=== PATIENT | female | born 1985 ===

== ENCOUNTER 2017-10-22 07:05 | Inpatient (IN) | payer MEDICAID, SELFPAY ==
[2017-10-22 07:30] VITALS: BMI 35.6
[2017-10-22] MEDS ORDERED: Oxytocin 30 units/LR 500ML 30 U/500 ML BAG IV SCH (07:45)
[2017-10-22] MEDS ORDERED: Lactated Ringer's 1,000 ML IV SCH (07:45)
[2017-10-22 07:57] LABS: BASO # 0.1 K/uL (0.0-0.2); BASO % 0.8 % (0.0-2.0); EOS # 0.1 K/uL (0.0-0.7); EOS % 0.5 % (0.0-4.0); HEMOGLOBIN 11.6 g/dL (12.0-16.0); LYMPH # 2.1 K/uL (1.0-4.3); MEAN CELL VOLUME 84.9 fl (81.0-99.0); MEAN CORPUSCULAR HEMOGLOBIN 28.5 pg (27.0-31.0); MEAN CORPUSCULAR HGB CONC 33.6 g/dL (33.0-37.0); MEAN PLATELET VOLUME 8.8 fl (7.2-11.7); MONO # 0.7 K/uL (0.0-0.8); MONO % 6.4 % (0.0-10.0); NEUT # 7.3 K/uL (1.8-7.0); NEUT % 71.3 % (50.0-75.0); NRBC % 0.1 % (0.0-0.0); RBC 4.06 Mil/uL (3.80-5.20); RED CELL DISTRIBUTION WIDTH 13.9 % (11.5-14.5); WHITE BLOOD COUNT 10.2 K/uL (4.8-10.8)
[2017-10-22] MEDS ORDERED: Multivitamin With Minerals Tab PO SCH (09:00)
--- NOTE | 2017-10-22 09:02 | OBADHP ---
Datetime: 10/22/2017 08:14 Admit Comment, IP Provider: 32 yo IUP 38.3 weeks present c/o ctx since 4 am that has been ge tting intensity and more frequents. Denies LOF, VB. States +FM. Medical records incomplete, only labs GC/Chla negative; and US. PNC: [facility], [place], operated by [facility]. 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 PSH: none. PE: see PE tab VE: /+1 TOCO: 140/variable/cat I/15 x15/ no decel. A/P: 32 yo IUP 38.3 weeks present c/o ctx, active labor. admit to unit Initiate labor protocol /maternal monitoring Will call [facility] today to obtain complete Med records. Case seen and examined with Dr Ahn. Cuello pgy1. OB Hpospitaliston-call...Pt seen and examined...patient brought chart. - only two sonogra ms and GC/Chl reports...pt does not know about GBS results. Anticiapte MAHNDO Pelvic Type - PN: Adequate Extremities - PN: Normal Abdomen - PN: Normal Back - PN: Not Done Breast - PN: Not Done Lungs - PN: Normal Heart - PN: Normal Thyroid - PN: Not Done Neurologic - PN: Normal HEENT - PN: Normal General - PN: Normal Presentation-Admit: Vertex FHR - Baseline A Provider: 140 Membranes, Provider: Bulging Contraction Comments Provider: e/ 1m Vital Signs Provider: Reviewed; Within Normal Limits IP Chief Complaint: Uterine contractions NICHD Variability Prov Fetus A: Moderate 6-25bpm NICHD Accel Fetus A IP Provider: 15X15 FHR Category Provider Fetus A: Category I NICHD Decel Fetus A IP Provider: None Dilatation, Provider: 9 Effacement, Provider: 100 Station, Provider: 1 Genitourinary Exam: Normal DTRs - PN: Not Done EGA AdmitDate IP: 38.3 IP Adm Impression: Term, intrauterine ; Active labor; Intact Membranes IP Admit Plan: Admit to unit; Initiate labor protocol
--- NOTE | 2017-10-22 09:02 | OBDS ---
DELIVERY PERSONNEL Nurse Box [employer] Maker Certified: emmanuel Delivery Doctor: Dr Kerrie Linda Nurse: emmanuel Industrial Organization Manager: CONNOR Villalob[employer] Anesthesiologist: emmanuel Copy Messenger: emmanuel Resident: Dr Douglas MATERNAL INFORMATION Medications in Delivery: pitocin Estimated Blood Loss (ml): 200cc Placenta Cultured: No RN Comments: to alive baby boy; 9/9;delivered complete placenta; no lacerations; uneventfu l delivery Provider Comments: Delivered live baby boy at 7/52 am, nuchal cord x1 loosed, baby was suctioned at perineum and transferred to maternal chest. Cord was clamped, 3 vessels noted; cord blood was obtaine d for labs. Placenta delivered at 8:04. EBL 200 cc, no vaginal lascerations appreciated. Apgars 9/9. Mother and baby tolerated well the procedure. OB hospitalistnote. With PGY1, I attended - just one losse nuichal cord. Skin to skin conta ct wth mother. VELNDO LABOR SUMMARY EDC: 11/02/2017 00:00 No. Babies in Womb: 1 Attempted: No Labor Anesthesia: None LABOR INFORMATION Onset of Labor: 10/22/2017 04:00 Complete Dilatation: 10/22/2017 07:45 Other Ripening Agents: o Oxytocin: 0 Group B Beta Strep: unknown Antibiotics # of Doses: na Antibiotics Time of Last Dose: na Steroids Given: None Reason Steroids Not Administered: Not Applicable Other Reason Not Administered: 0 MEMBRANES Membranes Rupture Method: Spontaneous Rupture of Membranes: 10/22/2017 07:45 Length of Rupture (hrs): 0.12 Amniotic Fluid Color: Clear Amniotic Fluid Amount: Moderate Amniotic Fluid Odor: Normal STAGES OF LABOR Stage 1 hrs: 3 Stage 1 min: 45 Stage 2 hrs: 0 Stage 2 min: 7 Stage 3 hrs: 0 Stage 3 min: 12 Total Time in Labor hrs: 4 Total Time in Labor min: 4 VAGINAL DELIVERY Episiotomy: None Laceration Extension: N/A Laceration Type: None Other Laceration: na Laceration Repair: Not Applicable Initial Vag Sponge Count: 5 Final Vag Sponge Count: 5 Initial Vag Sharps Count: 00 Sponge Count Correct: Yes Sharps Count Correct: N/A Count Comment: correct count - 5 lap pads BABY A INFORMATION Delivery Date/Time: 10/22/2017 07:52 Method of Delivery: Vaginal Born in Route : No : N/A Forceps: N/A Vacuum Extraction: N/A Shoulder Dystocia : No SHOULDER DYSTOCIA BABY A Delivery Date/Time: 10/22/2017 07:52 PRESENTATION/POSITION BABY A Presentation: Cephalic Cephalic Presentation: Vertex Vertex Position: Left Occipital Anterior Breech Presentation: N/A PLACENTA INFORMATION BABY A Placenta Delivery Time : 10/22/2017 08:04 Placenta Method of Delivery: Spontaneous Placenta Status: Delivered SCORES BABY A Heart Rate 1 min: >100 bpm Resp Effort 1 min: Good Cry Reflex Irritability 1 min: Cough or Sneeze or Pulls Away Muscle Tone 1 min: Active Motion Color 1 min: Body Martell, Extremities Blue SCORE 1 MIN: 9 Heart Rate 5 min: >100 bpm Resp Effort 5 min: Good Cry Reflex Irritability 5 min: Cough or Sneeze or Pulls Away Muscle Tone 5 min: Active Motion Color 5 min: Body Martell, Extremities Blue SCORE 5 MIN: 9 INFORMATION BABY A Gestational Age at Delivery: 38.0 Gestational Status: Term Infant Outcome : Liveborn Condition : Stable Infant Sex: Male IDENTIFICATION/MEDS BABY A ID Band Number: [id number] ID Band Location: Left Leg; Left Arm WEIGHT/LENGTH BABY A Birthweight (gms): 3240 Infant Weight (lb): 7 Weight (oz): 2 CORD INFORMATION BABY A No. Cord Vessels: 3 Nuchal Cord : Around Neck x1, Loose Nuchal Cord Other: na True Knot: na Infant Cord pH Baby Arterial: na Cord pH Baby Venous: na Cord Blood Taken: Yes Banking/Donate Info: na Infant Suction: None
[2017-10-23 06:46] LABS: BASO % 0.4 % (0.0-2.0); EOS # 0.1 K/uL (0.0-0.7); EOS % 0.6 % (0.0-4.0); HEMOGLOBIN 10.4 g/dL (12.0-16.0); LYMPH % 23.6 % (20.0-40.0); MEAN CELL VOLUME 84.4 fl (81.0-99.0); MEAN CORPUSCULAR HEMOGLOBIN 28.8 pg (27.0-31.0); MEAN CORPUSCULAR HGB CONC 34.2 g/dL (33.0-37.0); MEAN PLATELET VOLUME 8.6 fl (7.2-11.7); MONO # 0.6 K/uL (0.0-0.8); MONO % 6.6 % (0.0-10.0); NEUT # 5.9 K/uL (1.8-7.0); NEUT % 68.8 % (50.0-75.0); NRBC % 0.1 % (0.0-0.0); RBC 3.62 Mil/uL (3.80-5.20); RED CELL DISTRIBUTION WIDTH 14.3 % (11.5-14.5); WHITE BLOOD COUNT 8.6 K/uL (4.8-10.8)
[2017-10-23] MEDS ORDERED: Measles, Mumps, and Rubella 0.5 ML VIAL SC ONE (08:00)
[2017-10-23] MEDS: Multivitamin With Minerals Tab PO SCH (09:40)
[2017-10-23] MEDS ORDERED: Tdap Vaccine 0.5 ml Vial (10-64 yrs) IM ONE (21:33)
--- NOTE | 2017-10-24 07:44 | RAD ---
HISTORY: POsitive Quantiferon gold COMPARISON: No prior. TECHNIQUE: Chest PA and lateral FINDINGS: LUNGS: No active pulmonary disease. PLEURA: No significant pleural effusion identified. No pneumothorax apparent. CARDIOVASCULAR: Normal. OSSEOUS STRUCTURES: Dextroscoliotic thoracic spinal deformity appreciated. VISUALIZED UPPER ABDOMEN: Normal. OTHER FINDINGS: None. IMPRESSION: No acute cardiopulmonary disease appreciated.
[2017-10-24] MEDS: Multivitamin With Minerals Tab PO SCH (09:45)
--- NOTE | 2017-10-24 17:31 | OBPPN ---
Datetime: 10/24/2017 07:43 PP Pain Prov: Within normal limits PP Nausea Prov: Denies PP Flatus Prov: Yes PP BM Prov: Yes PP Breasts Prov: Normal PP Heart Prov: Normal PP Lungs Prov: Normal PP Abdomen/Uterus Prov: Normal PP Lochia Prov: Normal PP Vulva/Perineum Prov: Normal PP CVA Tenderness Prov: Normal PP Extremities Prov: Normal PP C/S Incision Prov: Not Applicable PP Progress Prov: Normal PP Impression Prov: Normal progression PP Plan Prov: Discharge PP Progress Note Prov: PPD 2 S: 32 yo s/p NVD on 10/22/2017 at 07:52. Pt. is seen and examined at bedside this AM. No s ignificant overnight events. Pt reports occasional abdominal pain, but well controlled with pain meds . Pt is ambulating without any difficulties. Breast feeding baby. Tolerating PO diet. Lochia is simil ar to light menses in volume. Voiding freely, normal BM yesterday. Denies fever, chills, diarrhea, na usea, vomiting, chest pain, dyspnea, and dizziness. O: VS: stable GEN: NAD Cardio: S1S2, no M/G/R Resp: clear breath sounds b/l Abdomen: BS+, NT, Uterus is firm and at the level of the umbilicus. EXT: No edema, calves nontender NEURO/PSYCHI: AAOx3, no grossly focal deficit, preserved affect and mood. Assessment/Plan: 32 yo s/p NVD on 10/22/2017 at 07:52. Pt remains afebrile, tolerating jimmy n with medication, tolerating PO intake, doing well on PPD2. OOB with caution Ibuprofen 600mg for pain. Encourage and ambulating CBC post-delivery: 10.4/30.5 TDAP on discharge Discharge home Case dw OB attending Cuate PGY 1 OB attending addendum: Patient seen and examined by me agree with above assessment and plan. IP PP Procedures Comments: Tdap Vital Signs Provider PP: Reviewed; Within Normal Limits Signature: Ross Datetime: 10/23/2017 06:50 IP PP Procedures: None
--- NOTE | 2017-10-24 17:31 | OBDCSUM ---
Datetime: 10/24/2017 07:47 Discharged to, Provider: Home Follow up at, Provider: PCP Disch Instr Activity: Normal activity; May Shower Disch Instr Diet: Regular Discharge Instructions, Provider: Routine instructions given Discharge Diagnosis, Provider: Term Delivered Discharge Time: 10/24/2017 16:00 Follow up in weeks, Provider: [facility] Disch Referrals: None Contraception discussed, Prov: Yes Disch Activity Restrictions: Minimize stair-climbing; No sexual activity; Nothing in vagina - Interc ourse, tampons, douche Discharge Comment, Provider: DOA: 10/22/2017 EGA: 38.3 Diagnosis: NVD Term Risk factors: none Summary of : 32 yo F L_D summary DOL: 10/22/2017 at 07:52 NVD NB: M : 01/25 Weight: 3240 g PP summary No serious complications during PP. Lochia= menses, mild pain, controlled with medications Rubella immune, Tdap 10/24/2017 Blood type: AB+ CBC pp: . Discharge Date: 10/24/2017 Time 10:00 AM Discharge Instructions: -encourage -Ambulate as tolerated -f/u NB visit 3-7 days w/ manager banking and PP visit 6 weeks with OB. Case d/w OB attending Cuate PGY 1 Contraception after Delivery: Undecided
[2017-10-24 23:47] VITALS: BP 126/79; PULSE 88; RESP 20; TEMP 98; O2SAT 99
== END 2017-10-24 15:00 | disposition home or self-care (01) | DRG 775 ==
LOC: H.EROB2 07:05 → H.L&D 07:18 → H.EROB2 07:34 → H.L&D 07:35 → H.OB/GYN 12:45
PROVIDERS: ADMIT Obstetrics & Gynecology; ATTEND Obstetrics & Gynecology
PROC: 10E0XZZ Delivery of Products of Conception, External Approach (ICD-10-PCS; principal; 2017-10-22)
PROC: 4A1HXCZ Monitoring of Products of Conception, Cardiac Rate, External Approach (ICD-10-PCS; 2017-10-22)
DX: O69.81X0 Labor and delivery complicated by cord around neck, without compression, not applicable or unspecified (principal); Z37.0 Single live birth; Z3A.38 38 weeks gestation of pregnancy